=== PATIENT | male | born 1950 | race Caucasian/White ===

== ENCOUNTER 2018-01-22 13:22 | Inpatient (IN) | payer MEDICARE ==
[~2018-01-22] VITALS: Ht 177.8 cm; Wt 74.7 kg
[2018-01-22] VITALS (8 sets, daily range): BP systolic 137–178; BP diastolic 70–86; PULSE 7–86; RESP 16–23; TEMP 98.2–98.4; O2SAT 98–100
[2018-01-22] MEDS ORDERED: LISI-590 PO (13:48)
[2018-01-22] MEDS ORDERED: MILK140C PO (13:48)
[2018-01-22] MEDS ORDERED: LORA-474 PO (13:48)
[2018-01-22] MEDS ORDERED: tumeric (13:48)
[2018-01-22] MEDS ORDERED: TOPR50TA PO (13:48)
[2018-01-22] MEDS ORDERED: PROT40TA PO (13:48)
[2018-01-22] MEDS ORDERED: SODIUM CHLOR 0.9% 1000 ML INJ 1,000 ML IV SCH (14:01)
[2018-01-22] MEDS ORDERED: SODIUM CHLORIDE 0.9% FLUSH 10 ML FLUSH IVF PRN (14:15)
[2018-01-22] MEDS ORDERED: DEXAMETHASONE SOD PHOS 20 MG/5 ML VIAL IV PUSH ONE (14:15)
[2018-01-22 14:21] LABS: AUTOMATED NEUTROPHIL # 4.9 TH/MM3 (1.8-7.7); BASOPHIL % 0.7 % (0.0-2.0); EOSINOPHIL # 0.1 TH/MM3 (0-0.4); EOSINOPHIL % 1.6 % (0.0-4.0); HEMATOCRIT 35.3 % (39.0-51.0); HEMOGLOBIN 11.9 GM/DL (13.0-17.0); LYMPH % 10.5 % (9.0-44.0); LYMPHOCYTE # 0.7 TH/MM3 (1.0-4.8); MEAN CELL VOLUME 97.8 FL (80.0-100.0); MEAN CORPUSCULAR HEMOGLOBIN 32.9 PG (27.0-34.0); MEAN CORPUSCULAR HGB CONC 33.6 % (32.0-36.0); MEAN PLATELET VOLUME 7.4 FL (7.0-11.0); MONO % 8.8 % (0.0-8.0); MONOCYTE # 0.6 TH/MM3 (0-0.9); NEUT % 78.4 % (16.0-70.0); PLATELET COUNT 192 TH/MM3 (150-450); RED BLOOD COUNT 3.61 MIL/MM3 (4.50-5.90); RED CELL DISTRIBUTION WIDTH 13.5 % (11.6-17.2); WHITE BLOOD COUNT 6.3 TH/MM3 (4.0-11.0)
[2018-01-22 14:32] LABS: PROTHROMBIN TIME - PATIENT 9.9 SEC (9.8-11.6)
--- NOTE | 2018-01-22 15:00 | PD ---
HPI Chief Complaint: Syncope/Near-Syncope Time Seen by Provider: 13:48 Travel History International Travel<30 days: No Contact w/Intl Traveler<30days: No Traveled to known affect area: No History of Present Illness HPI 67-year-old male with history of hypertension, SVT, here for evaluation of throat pain, neck swelling, and a syncopal episode. The patient reports that he felt pain in his throat yesterday evening. When he woke up this morning he had a significant amount of swelling to his anterior neck. He went to an urgent care facility, and while waiting in their waiting room he became diaphoretic and had a syncopal episode. During this episode he had slight upper extremity tremors. No seizure history. Upon arrival the patient states he feels well other than having a sore throat. His voice is hoarse. He is able to swallow and tolerate his secretions. He is able to breathe without difficulty. He is on an CARLA inhibitor. No fever. PFSH Past Medical History Diminished Hearing: No Hypertension: Yes Influenza Vaccination: Yes ?: Not Past Surgical History Tonsillectomy: Yes Social History Alcohol Use: Yes Tobacco Use: Yes Allergies-Medications (Allergen,Severity, Reaction): Coded Allergies: No Known Allergies (Unverified , 01/22/18) Reported Meds & Prescriptions Reported Meds & Active Scripts Active Reported [tumeric] 0 Milk Thistle 140 Mg Cap 240 Mg PO DAILY Ativan (Lorazepam) 1 Mg Tab 1.5 Mg PO HS PRN Protonix (Pantoprazole Sodium) 40 Mg Tab 40 Mg PO DAILY Zestril (Lisinopril) 10 Mg Tab 10 Mg PO DAILY Toprol XL (Metoprolol Succinate) 50 Mg Tab 50 Mg PO DAILY Review of Systems Except as stated in HPI: all other systems reviewed are Neg Physical Exam Narrative GENERAL: Well-developed, well-nourished, awake, alert, comfortable, no apparent distress. SKIN: Focused skin assessment warm/dry. HEAD: Atraumatic. Normocephalic. EYES: Pupils equal and round. No scleral icterus. No injection or drainage. ENT: Mucous membranes pink and moist. Pharynx with erythema with enlarged uvula. Tongue with black hue, no swelling. No lip swelling. No drooling or stridor. Hoarse voice. NECK: Trachea midline. No JVD. Anterior neck with large area of swelling which feels soft and not indurated. CARDIOVASCULAR: Regular rate and rhythm. No murmur appreciated. RESPIRATORY: No accessory muscle use. Clear to auscultation. Breath sounds equal bilaterally. GASTROINTESTINAL: Abdomen soft, non-tender, nondistended. MUSCULOSKELETAL: No obvious deformities. No clubbing. No cyanosis. No edema. NEUROLOGICAL: Awake and alert. No obvious cranial nerve deficits. Motor grossly within normal limits. Normal speech. PSYCHIATRIC: Appropriate mood and affect; insight and judgment normal. Data Data Last Documented VS Vital Signs Date Time Temp Pulse Resp B/P (MAP) Pulse Ox O2 Delivery O2 Flow Rate FiO2 01/22/18 17:24 80 18 178/86 (116) 98 Room Air 01/22/18 13:30 98.2 Orders Orders Ckmb (Isoenzyme) Profile (01/22/18 14:01) Complete Blood Count With Diff (01/22/18 14:01) Comprehensive Metabolic Panel (01/22/18 14:01) Magnesium (Mg) (01/22/18 14:01) Prothrombin Time / Inr (Pt) (01/22/18 14:01) Act Partial Throm Time (Ptt) (01/22/18 14:01) Troponin I (01/22/18 14:01) Ecg Monitoring (01/22/18 14:01) Iv Access Insert/Monitor (01/22/18 14:01) Oximetry (01/22/18 14:01) Sodium Chloride 0.9% Flush (Ns Flush) (01/22/18 14:15) Chest, Pa & Lat (01/22/18 14:01) Group A Rapid Strep Screen (01/22/18 14:01) Ct Soft Tiss Neck W Iv Cont (01/22/18 ) Ct Brain W/O Iv Contrast(Rout) (01/22/18 ) Dexamethasone Inj (Decadron Inj) (01/22/18 14:15) Sodium Chlor 0.9% 1000 Ml Inj (Ns 1000 M (01/22/18 14:01) Strep Culture (Group A) (01/22/18 14:05) Electrocardiogram (01/22/18 13:38) Thyroid Stimulating Hormone (01/22/18 15:00) Sodium Chlor 0.9% 1000 Ml Inj (Ns 1000 M (01/22/18 15:45) Ct Pulmonary Angiogram (01/22/18 ) Iohexol 350 Inj (Omnipaque 350 Inj) (01/22/18 17:16) Clindamycin 900 Mg/Ns Premix (Cleocin 90 (01/22/18 18:00) Labs Laboratory Tests Test 01/22/18 13:55 White Blood Count 6.3 TH/MM3 Red Blood Count 3.61 MIL/MM3 Hemoglobin 11.9 GM/DL Hematocrit 35.3 % Mean Corpuscular Volume 97.8 FL Mean Corpuscular Hemoglobin 32.9 PG Mean Corpuscular Hemoglobin Concent 33.6 % Red Cell Distribution Width 13.5 % Platelet Count 192 TH/MM3 Mean Platelet Volume 7.4 FL Neutrophils (%) (Auto) 78.4 % Lymphocytes (%) (Auto) 10.5 % Monocytes (%) (Auto) 8.8 % Eosinophils (%) (Auto) 1.6 % Basophils (%) (Auto) 0.7 % Neutrophils # (Auto) 4.9 TH/MM3 Lymphocytes # (Auto) 0.7 TH/MM3 Monocytes # (Auto) 0.6 TH/MM3 Eosinophils # (Auto) 0.1 TH/MM3 Basophils # (Auto) 0.0 TH/MM3 CBC Comment DIFF FINAL Differential Comment Prothrombin Time 9.9 SEC Prothromb Time International Ratio 1.0 RATIO Activated Partial Thromboplast Time 24.7 SEC Blood Urea Nitrogen 14 MG/DL Creatinine 0.81 MG/DL Random Glucose 84 MG/DL Total Protein 7.3 GM/DL Albumin 4.4 GM/DL Calcium Level 8.9 MG/DL Magnesium Level 1.4 MG/DL Alkaline Phosphatase 71 U/L Aspartate Amino Transf (AST/SGOT) 115 U/L Alanine Aminotransferase (ALT/SGPT) 105 U/L Total Bilirubin 0.5 MG/DL Sodium Level 124 MEQ/L Potassium Level 4.1 MEQ/L Chloride Level 87 MEQ/L Carbon Dioxide Level 22.6 MEQ/L Anion Gap 14 MEQ/L Estimat Glomerular Filtration Rate 95 ML/MIN Total Creatine Kinase 63 U/L Troponin I LESS THAN 0.02 NG/ML Thyroid Stimulating Hormone 3rd Gen 1.990 uIU/ML MDM Medical Decision Making Medical Screen Exam Complete: Yes Emergency Medical Condition: Yes Medical Record Reviewed: Yes Interpretation(s) EKG: Sinus, rate 76, normal axis, normal intervals, no acute ischemic abnormality. Differential Diagnosis Angioedema, Wagner angina, syncope, dysrhythmia, vasovagal episode from carotid sinus stimulation secondary to neck mass. Narrative Course Vital signs reviewed. CBC: WBC 6.3, hemoglobin 11.9, hematocrit 35.3, platelets 192, neutrophils 78%. CMP is remarkable for sodium 124, chloride 87, AST 115, ALT 105, otherwise unremarkable. TSH is 1.99 CT head: CONCLUSION: 1. No acute intracranial abnormalities. CT pulmonary angiogram: CONCLUSION: 1. Negative for pulmonary embolus. No lung consolidation or effusion. Moderate coronary calcifications. CT soft tissue neck: CONCLUSION: Nonspecific diffuse anterior superficial soft tissue edema as well as diffuse circumferential mucosal edema of the hypopharynx and thickening of the epiglottis. Retropharyngeal soft tissue edema also noted at this level. Findings indicate nonspecific inflammatory changes or infection. Airway is open. No defined abscess identified. The patient was given 10 mg of IV Decadron shortly after arriving to the emergency department. He states he feels as though his throat is slightly improved, however he is still hoarse. He was tolerating his secretions. There is no stridor. The patient is on an CARLA inhibitor, and I believe that this is more likely angioedema than infectious. He is afebrile. The patient's syncopal episode could have been secondary to carotid sinus stimulation secondary to the neck edema. Case discussed with on-call ENT Dr. Arciniega. Plan is to start the patient on clindamycin and steroids and admit him to the [facility] ICU to the truck operator service. Case discussed with Dr. Archer who will admit the patient to the truck operator service at the [facility] Diagnosis Primary Impression: Angioedema Qualified Codes: T78.3XXA - Angioneurotic edema, initial encounter Additional Impressions: Epiglottitis Syncope Qualified Codes: R55 - Syncope and collapse Hyponatremia Chay Schmidt MD Jan 22, 2018 15:00
--- NOTE | 2018-01-22 15:09 | RADRPT ---
EXAM DATE/TIME: 01/22/2018 14:34 [facility] COMPARISON: No previous studies available for comparison. INDICATIONS : Syncopal episode today, cough, sore throat MEDICAL HISTORY : Hypertension. SURGICAL HISTORY : None. ENCOUNTER: Initial ACUITY: 1 day PAIN SCORE: 0/10 LOCATION: Bilateral chest FINDINGS: PA and lateral views of the chest. The lungs are clear. Cardiomediastinal silhouette within normal li mits. No evidence of pleural effusion or pneumothorax. CONCLUSION: No acute cardiopulmonary disease identified. Marcelino Martinez MD on January 22, 2018 at 15:07 Board Certified Radiologist. This report was verified electronically.
[2018-01-22 15:14] LABS: ALBUMIN 4.4 GM/DL (3.4-5.0); ALKALINE PHOSPHATASE 71 U/L (45-117); ALT (GPT) 105 U/L (12-78); AST (GOT) 115 U/L (15-37); BICARBONATE 22.6 MEQ/L (21.0-32.0); BLOOD UREA NITROGEN 14 MG/DL (7-18); CALCIUM 8.9 MG/DL (8.5-10.1); CHLORIDE 87 MEQ/L (98-107); CREATININE 0.81 MG/DL (0.60-1.30); GLOMERULAR FILTRATION RATE 95 ML/MIN (>89); GLUCOSE,RANDOM 84 MG/DL (74-106); MAGNESIUM 1.4 MG/DL (1.5-2.5); TOTAL BILIRUBIN ADULT 0.5 MG/DL (0.2-1.0); TOTAL PROTEIN 7.3 GM/DL (6.4-8.2); TROPONIN I LESS THAN 0.02 NG/ML (0.02-0.05)
[2018-01-22 15:38] LABS: SODIUM (NA) 124 MEQ/L (136-145)
[2018-01-22] MEDS ORDERED: SODIUM CHLOR 0.9% 1000 ML INJ 1,000 ML IV ONE (15:45)
--- NOTE | 2018-01-22 16:14 | EKG ---
Date Performed: 01/22/2018 Time Performed: 13:38:41 PTAGE: 67 years EKG: Sinus rhythm NORMAL ECG NO PREVIOUS TRACING DOCTOR: Raymond Eller Interpretating Date/Time 01/22/2018 16:14:07
[2018-01-22] MEDS ORDERED: IOHEXOL 350 MG/ML 10 ML VIAL (for RAD DIAG) IVCONTRAST ONE (17:16)
--- NOTE | 2018-01-22 17:28 | RADRPT ---
EXAM DATE/TIME: 01/22/2018 16:58 [facility] COMPARISON: No previous studies available for comparison. INDICATIONS : Elevated sodium levels, poss seizure. IV CONTRAST: 75 cc Omnipaque 350 (iohexol) IV ; Cumulative dose for multiple exams. RADIATION DOSE: 9.05 CTDIvol (mGy) ; Combined studies MEDICAL HISTORY : Hypertension. SURGICAL HISTORY : None. ENCOUNTER: Initial ACUITY: 2 days PAIN SCALE: 0/10 LOCATION: chest TECHNIQUE: Volumetric scanning of the chest was performed using a pulmonary embolism protocol MIP images were re constructed. Using automated exposure control and adjustment of the mA and/or kV according to patien t size, radiation dose was kept as low as reasonably achievable to obtain optimal diagnostic quality images. DICOM format image data is available electronically for review and comparison. Follow-up recommendations for detected pulmonary nodules are based at a minimum on nodule size and pa tient risk factors according to Fleischner Society Guidelines. FINDINGS: No filling defects identified to suggest pulmonary embolic disease. There is no pleural or pericardial effusion. Moderate coronary artery calcifications are noted. No ac kashia bony abnormalities. No acute findings in the upper abdomen. CONCLUSION: 1. Negative for pulmonary embolus. No lung consolidation or effusion. Moderate coronary calcification lilia Gudino MD on January 22, 2018 at 17:25 Board Certified Radiologist. This report was verified electronically.
--- NOTE | 2018-01-22 17:30 | RADRPT ---
EXAM DATE/TIME: 01/22/2018 16:55 [facility] COMPARISON: No previous studies available for comparison. INDICATIONS : SEIZURE. RADIATION DOSE: 67.45 CTDIvol (mGy) MEDICAL HISTORY : Hypertension. SURGICAL HISTORY : None. ENCOUNTER: Initial ACUITY: 2 days PAIN SCALE: 0/10 LOCATION: cranial TECHNIQUE: Multiple contiguous axial images were obtained of the head. Using automated exposure control and adj ustment of the mA and/or kV according to patient size, radiation dose was kept as low as reasonably a chievable to obtain optimal diagnostic quality images. DICOM format image data is available electro nically for review and comparison. FINDINGS: CEREBRUM: The ventricles are normal for age. No evidence of midline shift, mass lesion, hemorrhage or acute in farction. No extra-axial fluid collections are seen. POSTERIOR FOSSA: The cerebellum and brainstem are intact. The 4th ventricle is midline. The cerebellopontine angle i s unremarkable. EXTRACRANIAL: The visualized portion of the orbits is intact. SKULL: The calvaria is intact. No evidence of skull fracture. CONCLUSION: 1. No acute intracranial abnormalities. Tanmay Gudino MD on January 22, 2018 at 17:27 Board Certified Radiologist. This report was verified electronically.
--- NOTE | 2018-01-22 17:34 | RADRPT ---
EXAM DATE/TIME: 01/22/2018 17:02 [facility] COMPARISON: No previous studies available for comparison. INDICATIONS : Swelling, sore throat. IV CONTRAST: 75 cc Omnipaque 350 (iohexol) IV ; Cumulative dose for multiple exams. RADIATION DOSE: 17.02 CTDIvol (mGy) MEDICAL HISTORY : Hypertension. SURGICAL HISTORY : ENCOUNTER: Initial ACUITY: 2 days PAIN SCALE: 0/10 LOCATION: neck TECHNIQUE: Volumetric scanning of the neck was performed. Using automated exposure control and adjustment of th e mA and/or kV according to patient size, radiation dose was kept as low as reasonably achievable to obtain optimal diagnostic quality images. DICOM format image data is available electronically for r eview and comparison. FINDINGS: NASOPHARYNX: The nasopharyngeal airway has a normal configuration. No mucosal thickening or mass is seen. OROPHARYNX: The intrinsic muscles of the tongue are symmetric. The tonsillar pillars are intact. The prevertebr al soft tissues are not thickened. HYPOPHARYNX: There is evidence of mild diffuse thickening of the epiglottis as well as retropharyngeal soft tissue edema at the level of the hypopharynx. Discrete defined abscess is not seen. Adjacent diffuse subman dibular and anterior neck superficial soft tissue edema is noted at the level of the hypopharynx. The airway is open. LARYNX: The supraglottic, glottic, and infraglottic structures are intact. PARAPHARYNGEAL: The parapharyngeal space is intact. SALIVARY GLANDS: The parotid and submandibular glands are intact. LYMPH NODES: No enlarged or necrotic-appearing nodes. THYROID: Homogeneous enhancement without evidence of nodule. BONES: Unremarkable. CONCLUSION: Nonspecific diffuse anterior superficial soft tissue edema as well as diffuse circumferential mucosal edema of the hypopharynx and thickening of the epiglottis. Retropharyngeal soft tissue edema also no clifford at this level. Findings indicate nonspecific inflammatory changes or infection. Airway is open. N o defined abscess identified. Marcelino Martinez MD on January 22, 2018 at 17:28 Board Certified Radiologist. This report was verified electronically.
[2018-01-22] MEDS ORDERED: CLINDAMYCIN 900 MG/NS PREMIX 50 ML IV ONE (18:00)
[2018-01-22] MEDS ORDERED: MAGNESIUM SULFATE 1 GM PREMIX 100 ML IV ONE (18:15)
[2018-01-22] MEDS ORDERED: CHLORHEXIDINE GLUCONATE 2 % 1 PACK (2 CLOTHS) TOP PRN (20:30)
[2018-01-22] MEDS ORDERED: METOPROLOL TARTRATE 5 MG/5 ML VIAL IV PUSH SCH (20:30)
[2018-01-22] MEDS ORDERED: RESP: ALBUTEROL 2.5 MG/IPRATROPIUM 0.5 MG NEB (PRN) INH (20:30)
[2018-01-22] MEDS ORDERED: LACTULOSE SYRUP 20 GM/30 ML CUP PO PRN (20:30)
[2018-01-22] MEDS ORDERED: LABETALOL HCL 100 MG/20 ML VIAL IV PUSH PRN (20:30)
[2018-01-22] MEDS ORDERED: BISACODYL 10 MG SUPP RECTAL PRN (20:30)
[2018-01-22] MEDS ORDERED: SODIUM CHLORIDE 0.9% FLUSH 10 ML FLUSH IV FLUSH PRN (20:30)
[2018-01-22] MEDS ORDERED: MAGNESIUM HYDROXIDE SUSP 30 ML CUP PO PRN (20:30)
[2018-01-22] MEDS ORDERED: MISCELLANEOUS NURSING INFORMATION XX SCH (20:30)
[2018-01-22] MEDS ORDERED: SENNOSIDES 8.6 MG TAB PO PRN (20:30)
[2018-01-22] MEDS ORDERED: ONDANSETRON HCL 4 MG/2 ML VIAL IV PUSH PRN (20:30)
[2018-01-22] MEDS ORDERED: LORazepam 0.5 MG TAB PO PRN (21:00)
[2018-01-22] MEDS: SODIUM CHLORIDE 0.9% FLUSH 10 ML FLUSH IV FLUSH SCH (21:30)
[2018-01-22] MEDS: SODIUM CHLOR 0.9% 1000 ML INJ 1,000 ML IV SCH (22:10)
[2018-01-22] MEDS: DEXAMETHASONE SOD PHOS 4 MG/ML VIAL IV PUSH SCH (22:11)
[2018-01-22] MEDS: ENOXAPARIN SODIUM 40 MG/0.4 ML SYRINGE SQ SCH (22:11)
--- NOTE | 2018-01-22 22:21 | HHI.CCPN ---
Subjective Remarks/Hospital Course History of Present Illness HPI 67-year-old male with history of hypertension, SVT presented to the ER at [facility] for evaluation of throat pain, neck swelling, and a syncopal episode. The patient reports that he felt pain in his throat yesterday evening. When he woke up this morning he had a significant amount of swelling to his anterior neck. He went to an urgent care facility, and while waiting in their waiting room he became diaphoretic and had a syncopal episode. During this episode he had slight upper extremity tremors. No seizure history. Upon arrival the patient states he feels well other than having a sore throat. His voice is hoarse. He was able to swallow and tolerate his secretions. He is able to breathe without difficulty. He is on an CARLA inhibitor. No fever. Patient underwent imaging studies at [facility] and was found to have swelling in the neck with swelling around the epiglottis. ENT Dr. Arciniega was contacted and advised admission with Decadron and IV clindamycin. Patient was accepted for admission by critical care medicine service. He was transferred to the [facility] hospital and I evaluated him immediately following his arrival to [facility]. At that time patient was resting in bed not complaining of any shortness of breath or difficulty breathing. He denied any stridor at the time. He did have a minimal cough. He felt that his neck swelling was slightly improved. He denied any fever or chills denied any hemoptysis. He did take his Toprol-XL and Ativan earlier at [facility]. He denied any difficulty with swallowing. History PFSH Past Medical History Diminished Hearing: No Hypertension: Yes Influenza Vaccination: Yes ?: Not Past Surgical History Tonsillectomy: Yes Social History Alcohol Use: Yes Tobacco Use: Yes Allergies-Medications Allergies-Medications (Allergen,Severity, Reaction): Coded Allergies: No Known Allergies (Unverified , 01/22/18) Reported Meds & Prescriptions Reported Meds & Active Scripts Active Reported [tumeric] 0 Milk Thistle 140 Mg Cap 240 Mg PO DAILY Ativan (Lorazepam) 1 Mg Tab 1.5 Mg PO HS PRN Protonix (Pantoprazole Sodium) 40 Mg Tab 40 Mg PO DAILY Zestril (Lisinopril) 10 Mg Tab 10 Mg PO DAILY Toprol XL (Metoprolol Succinate) 50 Mg Tab 50 Mg PO DAILY ROS Review of Systems Except as stated in HPI: all other systems reviewed are Neg Objective Vital Signs Date Time Temp Pulse Resp B/P (MAP) Pulse Ox O2 Delivery O2 Flow Rate FiO2 01/22/18 20:52 01/22/18 20:05 86 18 98 Room Air 01/22/18 13:30 98.2 Intake and Output 01/22/18 01/22/18 01/23/18 08:00 16:00 00:00 Intake Total 1150 ml Balance 1150 ml Result Diagram: 01/22/18 1355 01/22/18 1355 Other Results Microbiology Date/Time Source Procedure Growth Status 01/22/18 14:05 Throat Group A Streptococcus Screen ([facility]) - Final Complete Objective Remarks Narrative GENERAL: Well-developed, well-nourished, awake, alert, comfortable, no apparent distress. SKIN: Focused skin assessment warm/dry. HEAD: Atraumatic. Normocephalic. EYES: Pupils equal and round. No scleral icterus. No injection or drainage. ENT: Mucous membranes pink and moist. Pharynx with erythema with enlarged uvula. Tongue with black hue, no swelling. No lip swelling. No drooling or stridor. No hoarseness noted in voice currently. NECK: Trachea midline. No JVD. Anterior neck with large area of swelling which feels soft and not indurated. Minimally tender on palpation. CARDIOVASCULAR: Regular rate and rhythm. No murmur appreciated. RESPIRATORY: No accessory muscle use. Clear to auscultation. Breath sounds equal bilaterally. No stridor noted, no wheezing GASTROINTESTINAL: Abdomen soft, non-tender, nondistended. MUSCULOSKELETAL: No obvious deformities. No clubbing. No cyanosis. No edema. NEUROLOGICAL: Awake and alert. No obvious cranial nerve deficits. Motor grossly within normal limits. Normal speech. PSYCHIATRIC: Appropriate mood and affect; insight and judgment normal. A/P Assessment and Plan 67 year-old male with: Neck swelling due to angioedema Hypertension Hyponatremia History of SVT Plan: Admit to ICU Continue Ativan when necessary for anxiety Follow neuro status Supplemental O2 as needed. Bronchial dilators when necessary. If patient develops stridor or worsening swelling/angioedema, may require endotracheal intubation for airway protection. Toprol-XL will be continued with labetalol when necessary for hypertension. Zestril stopped which probably is responsible for his angioedema. Will add metoprolol 25 mg daily at bedtime in addition to Toprol-XL 50 mg home dose. IV hydration with normal saline, repeat BMP in a.m. IV Decadron, clindamycin ordered. ENT consulted for further evaluation of angioedema and neck swelling. Monitor and replete electrolytes, follow BUN/creatinine Watch for hyperglycemia, SSI for glycemic control if needed. Continue Protonix for GI prophylaxis Lovenox for DVT prophylaxis We will initiate clear liquids in a.m. Ordered Transfer to hospitalist service in a.m. unless angioedema worsens. Adonay Bae MD Jan 22, 2018 22:21
[2018-01-23] VITALS (12 sets, daily range): BP systolic 108–171; BP diastolic 54–86; PULSE 75–108; RESP 22–32; TEMP 97.8–98.8; O2SAT 96–99
[2018-01-23] MEDS: CLINDAMYCIN INJ 600 MG in SODIUM CHLORIDE 0.9% INJ 100 ML IV SCH ×5 (00:06→23:16)
[2018-01-23] MEDS ORDERED: METOPROLOL TARTRATE 5 MG/5 ML VIAL IV PUSH PRN (02:30)
[2018-01-23] MEDS: CHLORHEXIDINE GLUCONATE 2 % 1 PACK (2 CLOTHS) TOP SCH (03:32)
[2018-01-23] MEDS: DEXAMETHASONE SOD PHOS 4 MG/ML VIAL IV PUSH SCH ×3 (05:57→21:50)
--- NOTE | 2018-01-23 07:50 | HHI.PR ---
Subjective Remarks in no acute distress. says that ' the throat feels better today'. no fever. no chest pain or sob. Objective Vitals Vital Signs Date Time Temp Pulse Resp B/P (MAP) Pulse Ox O2 Delivery O2 Flow Rate FiO2 01/23/18 06:00 91 01/23/18 04:00 84 01/23/18 04:00 98.4 84 22 108/54 (72) 96 01/23/18 02:00 83 01/23/18 00:00 98.8 91 26 129/60 (83) 98 01/23/18 00:00 91 01/22/18 22:00 80 01/22/18 21:30 98.4 81 23 177/80 (112) 100 01/22/18 21:30 82 01/22/18 20:52 01/22/18 20:05 86 18 153/85 (107) 98 Room Air 01/22/18 18:47 76 18 168/81 (110) 98 Room Air 01/22/18 17:24 80 18 178/86 (116) 98 Room Air 01/22/18 15:01 82 18 137/74 (95) 99 Room Air 01/22/18 15:00 Room Air 01/22/18 14:13 78 18 155/70 (98) 99 Room Air 01/22/18 13:44 97 01/22/18 13:30 98.2 82 16 169/81 (110) 98 I/O 01/22/18 01/22/18 01/22/18 01/23/18 01/23/18 01/23/18 07:00 15:00 23:00 07:00 15:00 23:00 Intake Total 1150 ml 104 ml Output Total 425 ml Balance 1150 ml -321 ml Intake Oral 0 ml IV Total 1150 ml 104 ml Output Urine Total 425 ml # Voids 1 # Bowel Movements 0 Result Diagram: 01/22/18 1355 01/22/18 1355 Imaging Last Impressions Chest X-Ray 01/22/18 1401 Signed Impressions: Service Date/Time: Monday, January 22, 2018 14:34 - CONCLUSION: No acute cardiopulmonary disease identified. Marcelino Martinez MD Neck CT 01/22/18 0000 Signed Impressions: Service Date/Time: Monday, January 22, 2018 17:02 - CONCLUSION: Nonspecific diffuse anterior superficial soft tissue edema as well as diffuse circumferential mucosal edema of the hypopharynx and thickening of the epiglottis. Retropharyngeal soft tissue edema also noted at this level. Findings indicate nonspecific inflammatory changes or infection. Airway is open. No defined abscess identified. Marcelino Martinez MD Head CT 01/22/18 0000 Signed Impressions: Service Date/Time: Monday, January 22, 2018 16:55 - CONCLUSION: 1. No acute intracranial abnormalities. Tanmay Gudino MD CT Angiography 01/22/18 0000 Signed Impressions: Service Date/Time: Monday, January 22, 2018 16:58 - CONCLUSION: 1. Negative for pulmonary embolus. No lung consolidation or effusion. Moderate coronary calcifications. Tanmay Gudino MD Objective Remarks GENERAL: This is a well-nourished, well-developed patient, in no apparent distress. CARDIOVASCULAR: Regular rate and regular rhythm without murmurs, gallops, or rubs. RESPIRATORY: Clear to auscultation. Breath sounds equal bilaterally. No wheezes , rales, or rhonchi. GASTROINTESTINAL: Abdomen soft, non-tender, nondistended. Normal, active bowel sounds MUSCULOSKELETAL: Extremities without clubbing, cyanosis, or edema. NEURO: Alert & Oriented x4 to person, place, time, situation. Moves all ext x4 Medications and IVs Inpatient Medications Albuterol/ Ipratropium (Duoneb Neb) 1 ampule Q2HR NEB PRN INH WHEEZING; Start 01/22/18 at 20:30 Bisacodyl (Dulcolax Supp) 10 mg DAILY PRN RECTAL SEVERE CONSITIPATION; Start at 20:30 Chlorhexidine Gluconate (Chlorhexidine 2% Cloth) 3 pack UNSCH PRN TOP HYGIENIC CARE; Start 01/22/18 at 20:30 Clindamycin Phosphate 600 mg/ Sodium Chloride 104 ml @ 208 mls/hr Q6H IV Last administered on 01/23/18at 05:57; Start 01/23/18 at 00:00 Clindamycin/ Sodium Chloride 50 ml @ 100 mls/hr ONCE ONCE IV Last administered on 01/22/18at 18:03; Start 01/22/18 at 18:00; Stop 01/22/18 at 18:29 ; Status DC Dexamethasone Sodium Phosphate (Decadron Inj) 4 mg Q8HR IV PUSH Last administered on 01/23/18at 05:57; Start 01/22/18 at 22:00 Enoxaparin Sodium (Lovenox Inj) 40 mg Q24H SQ Last administered on 01/22/18at 22 :11; Start 01/22/18 at 21:00 Labetalol HCl (Trandate Inj) 20 mg Q4H PRN IV PUSH sbp GREATER THAN 160mm Hg Last administered on 01/22/18at 21:57; Start 01/22/18 at 20:30 Lactulose (Lactulose Liq) 30 ml DAILY PRN PO SEVERE CONSITIPATION; Start at 20:30 Lorazepam (Ativan) 1.5 mg HS PRN PO ANXIETY AND/OR AGITATION; Start 01/22/18 at 21:00 Magnesium Hydroxide (Milk Of Magnesia Liq) 30 ml Q12H PRN PO Mild constipation ; Start 01/22/18 at 20:30 Magnesium Sulfate/ Dextrose 100 ml @ 100 mls/hr ONCE ONCE IV Last administered on 01/22/18at 19:33; Start 01/22/18 at 18:15; Stop 01/22/18 at 19:14 ; Status DC Metoprolol Tartrate (Lopressor Inj) 2.5 mg Q6H PRN IV PUSH heart rate greater than 110; Start 01/23/18 at 02:30 Miscellaneous Information 1 [id number] Last administered on 01/22/18at 21:30; Start 01/22/18 at 20:30 Ondansetron HCl (Zofran Inj) 4 mg Q6H PRN IV PUSH NAUSEA OR VOMITING; Start 09/01 at 20:30 Pantoprazole Sodium (Protonix) 40 mg DAILY PO ; Start 01/23/18 at 09:00 Sennosides (Senokot) 17.2 mg Q12H PRN PO Moderate constipation; Start 01/22/18 at 20:30 Sodium Chloride (NS Flush) 2 ml BID IV FLUSH Last administered on 01/22/18at 21: 30; Start 01/22/18 at 21:00 A/P Assessment and Plan A/P Neck swelling- possibly due to angioedema - continue IV Decadron and Clindamycin- awaiting ENT evaluation. Hypertension - resume metoprolol- will monitor and adjust the regimen as needed. Hyponatremia - continue IV fluid- sodium level today pending.- will monitor elevated LFT's due to hepatitis C/ alcohol abuse - will monitor History of SVT - resume metoprolol transfer to telemetry if ok with ENT. Juliana West MD Jan 23, 2018 07:50
[2018-01-23] MEDS ORDERED: METOPROLOL SUCCINATE 50 MG EXTENDED RELEASE TAB PO SCH (09:00)
[2018-01-23] MEDS: SODIUM CHLORIDE 0.9% FLUSH 10 ML FLUSH IV FLUSH SCH ×2 (09:00→20:46)
[2018-01-23] MEDS: PANTOPRAZOLE SOD 40 MG DELAYED RELEASE TAB PO SCH (09:14)
[2018-01-23 11:26] LABS: AUTOMATED NEUTROPHIL # 3.3 TH/MM3 (1.8-7.7); BASOPHIL % 0.1 % (0.0-2.0); HEMATOCRIT 30.4 % (39.0-51.0); HEMOGLOBIN 10.7 GM/DL (13.0-17.0); LYMPH % 6.5 % (9.0-44.0); LYMPHOCYTE # 0.2 TH/MM3 (1.0-4.8); MEAN CELL VOLUME 98.2 FL (80.0-100.0); MEAN CORPUSCULAR HEMOGLOBIN 34.6 PG (27.0-34.0); MEAN CORPUSCULAR HGB CONC 35.2 % (32.0-36.0); MEAN PLATELET VOLUME 7.1 FL (7.0-11.0); MONOCYTE # 0.2 TH/MM3 (0-0.9); NEUT % 88.4 % (16.0-70.0); PLATELET COUNT 160 TH/MM3 (150-450); RED CELL DISTRIBUTION WIDTH 13.7 % (11.6-17.2); WHITE BLOOD COUNT 3.7 TH/MM3 (4.0-11.0)
[2018-01-23 11:50] LABS: ALBUMIN 3.9 GM/DL (3.4-5.0); AST (GOT) 59 U/L (15-37); BICARBONATE 23.5 MEQ/L (21.0-32.0); BLOOD UREA NITROGEN 14 MG/DL (7-18); CALCIUM 9.1 MG/DL (8.5-10.1); CHLORIDE 93 MEQ/L (98-107); GLOMERULAR FILTRATION RATE 84 ML/MIN (>89); GLUCOSE,RANDOM 204 MG/DL (74-106); SODIUM (NA) 128 MEQ/L (136-145)
[2018-01-23 11:51] LABS: ALT (GPT) 78 U/L (12-78)
[2018-01-23 11:53] LABS: ALKALINE PHOSPHATASE 60 U/L (45-117); TOTAL BILIRUBIN ADULT 0.5 MG/DL (0.2-1.0); TOTAL PROTEIN 6.3 GM/DL (6.4-8.2)
[2018-01-23] MEDS: SODIUM CHLOR 0.9% 1000 ML INJ 1,000 ML IV SCH (12:25)
[2018-01-23] MEDS ORDERED: ACETAMINOPHEN 325 MG TAB PO ONE (19:30)
[2018-01-23] MEDS: ENOXAPARIN SODIUM 40 MG/0.4 ML SYRINGE SQ SCH (20:45)
[2018-01-24] VITALS (8 sets, daily range): BP systolic 118–141; BP diastolic 57–69; PULSE 1–81; RESP 16–45; TEMP 97.9–98.5; O2SAT 97–100
[2018-01-24] MEDS: SODIUM CHLOR 0.9% 1000 ML INJ 1,000 ML IV SCH (01:53)
[2018-01-24] MEDS: CHLORHEXIDINE GLUCONATE 2 % 1 PACK (2 CLOTHS) TOP SCH (04:00)
[2018-01-24] MEDS: CLINDAMYCIN INJ 600 MG in SODIUM CHLORIDE 0.9% INJ 100 ML IV SCH ×2 (05:26→12:15)
[2018-01-24] MEDS: DEXAMETHASONE SOD PHOS 4 MG/ML VIAL IV PUSH SCH ×2 (05:27→13:47)
[2018-01-24 05:45] LABS: BICARBONATE 23.1 MEQ/L (21.0-32.0); CALCIUM 8.8 MG/DL (8.5-10.1); CREATININE 0.74 MG/DL (0.60-1.30)
--- NOTE | 2018-01-24 07:45 | HHI.PR ---
Subjective Remarks looks and feels much better today. no fever. no new complaints. d/w the RN. Objective Vitals Vital Signs Date Time Temp Pulse Resp B/P (MAP) Pulse Ox O2 Delivery O2 Flow Rate FiO2 01/24/18 06:00 69 01/24/18 04:00 75 01/24/18 04:00 98.1 75 20 118/57 (77) 97 01/24/18 02:00 69 01/24/18 00:00 81 01/24/18 00:00 98.5 81 16 127/66 (86) 97 01/23/18 22:00 75 01/23/18 20:00 80 01/23/18 20:00 98.5 80 24 155/70 (98) 99 01/23/18 18:00 85 01/23/18 16:00 84 01/23/18 16:00 98.2 84 25 158/76 (103) 99 01/23/18 14:00 83 01/23/18 12:00 97.8 104 32 164/86 (112) 98 01/23/18 12:00 104 01/23/18 10:00 86 01/23/18 08:00 98.2 108 31 171/83 (112) 97 01/23/18 08:00 108 01/23/18 08:00 98.2 108 31 171/83 (112) 97 I/O 01/23/18 01/23/18 01/23/18 01/24/18 01/24/18 01/24/18 07:00 15:00 23:00 07:00 15:00 23:00 Intake Total 104 ml 300 ml Output Total 425 ml 1900 ml 500 ml Balance -321 ml -1600 ml -500 ml Intake Oral 0 ml 300 ml IV Total 104 ml Output Urine Total 425 ml 1900 ml 500 ml # Voids 3 # Bowel Movements 0 1 0 Result Diagram: 01/23/18 1102 01/24/18 0416 Imaging Last Impressions Chest X-Ray 01/22/18 1401 Signed Impressions: Service Date/Time: Monday, January 22, 2018 14:34 - CONCLUSION: No acute cardiopulmonary disease identified. Marcelino Martinez MD Neck CT 01/22/18 0000 Signed Impressions: Service Date/Time: Monday, January 22, 2018 17:02 - CONCLUSION: Nonspecific diffuse anterior superficial soft tissue edema as well as diffuse circumferential mucosal edema of the hypopharynx and thickening of the epiglottis. Retropharyngeal soft tissue edema also noted at this level. Findings indicate nonspecific inflammatory changes or infection. Airway is open. No defined abscess identified. Marcelino Martinez MD Head CT 01/22/18 0000 Signed Impressions: Service Date/Time: Monday, January 22, 2018 16:55 - CONCLUSION: 1. No acute intracranial abnormalities. Tanmay Gudino MD CT Angiography 01/22/18 0000 Signed Impressions: Service Date/Time: Monday, January 22, 2018 16:58 - CONCLUSION: 1. Negative for pulmonary embolus. No lung consolidation or effusion. Moderate coronary calcifications. Tanmay Gudino MD Objective Remarks GENERAL: This is a well-nourished, well-developed patient, in no apparent distress. CARDIOVASCULAR: Regular rate and regular rhythm without murmurs, gallops, or rubs. RESPIRATORY: Clear to auscultation. Breath sounds equal bilaterally. No wheezes , rales, or rhonchi. GASTROINTESTINAL: Abdomen soft, non-tender, nondistended. Normal, active bowel sounds MUSCULOSKELETAL: Extremities without clubbing, cyanosis, or edema. NEURO: Alert & Oriented x4 to person, place, time, situation. Moves all ext x4 Procedures none Medications and IVs Inpatient Medications Acetaminophen (Tylenol) 650 mg ONCE ONCE PO Last administered on 01/23/18at 20: 45; Start 01/23/18 at 19:30; Stop 01/23/18 at 19:31; Status DC Albuterol/ Ipratropium (Duoneb Neb) 1 ampule Q2HR NEB PRN INH WHEEZING; Start 01/22/18 at 20:30 Bisacodyl (Dulcolax Supp) 10 mg DAILY PRN RECTAL SEVERE CONSITIPATION; Start at 20:30 Chlorhexidine Gluconate (Chlorhexidine 2% Cloth) 3 pack UNSCH PRN TOP HYGIENIC CARE; Start 01/22/18 at 20:30 Clindamycin Phosphate 600 mg/ Sodium Chloride 104 ml @ 208 mls/hr Q6H IV Last administered on 01/24/18at 05:26; Start 01/23/18 at 00:00 Clindamycin/ Sodium Chloride 50 ml @ 100 mls/hr ONCE ONCE IV Last administered on 01/22/18 18:03; Start 01/22/18 at 18:00; Stop 01/22/18 at 18:29 ; Status DC Dexamethasone Sodium Phosphate (Decadron Inj) 8 mg Q8HR IV PUSH Last administered on 01/24/18at 05:27; Start 01/23/18 at 14:00 Enoxaparin Sodium (Lovenox Inj) 40 mg Q24H SQ Last administered on 01/23/18at 20 :45; Start 01/22/18 at 21:00 Labetalol HCl (Trandate Inj) 20 mg Q4H PRN IV PUSH sbp GREATER THAN 160mm Hg Last administered on 01/22/18 21:57; Start 01/22/18 at 20:30 Lactulose (Lactulose Liq) 30 ml DAILY PRN PO SEVERE CONSITIPATION; Start at 20:30 Lorazepam (Ativan) 1.5 mg HS PRN PO ANXIETY AND/OR AGITATION Last administered on 01/23/18at 20:45; Start 01/22/18 at 21:00 Magnesium Hydroxide (Milk Of Magnesia Liq) 30 ml Q12H PRN PO Mild constipation ; Start 01/22/18 at 20:30 Magnesium Sulfate/ Dextrose 100 ml @ 100 mls/hr ONCE ONCE IV Last administered on 01/22/18at 19:33; Start 01/22/18 at 18:15; Stop 01/22/18 at 19:14 ; Status DC Metoprolol Succinate (Toprol Xl) 50 mg DAILY PO Last administered on 01/23/18at 14:39; Start 01/23/18 at 09:00 Metoprolol Tartrate (Lopressor Inj) 2.5 mg Q6H PRN IV PUSH heart rate greater than 110; Start 01/23/18 at 02:30 Miscellaneous Information 1 [id number] Last administered on 01/22/18at 21:30; Start 01/22/18 at 20:30 Ondansetron HCl (Zofran Inj) 4 mg Q6H PRN IV PUSH NAUSEA OR VOMITING; Start 09/01 at 20:30 Pantoprazole Sodium (Protonix) 40 mg DAILY PO Last administered on 01/23/18at 09 :14; Start 01/23/18 at 09:00 Sennosides (Senokot) 17.2 mg Q12H PRN PO Moderate constipation Last administered on 01/23/18at 09:14; Start 01/22/18 at 20:30 Sodium Chloride (NS Flush) 2 ml BID IV FLUSH Last administered on 01/23/18at 20: 46; Start 01/22/18 at 21:00 A/P Assessment and Plan A/P Neck swelling- possibly due to angioedema- resolved. - switch to po steroid and Clindamycin- evaluated by ENT. Hypertension - resumed metoprolol- will monitor and adjust the regimen as needed. Hyponatremia-much improved. elevated LFT's due to hepatitis C/ alcohol abuse- improved. History of SVT; - resumed metoprolol Discharge Planning dc home today if ok with ENT. see med list. f/u; pcp and ENT. d/w the patient and RN. Juliana West MD Jan 24, 2018 07:44
[2018-01-24] MEDS ORDERED: CLIN300C5 PO (07:46)
[2018-01-24] MEDS ORDERED: MEDR4PAK PO (07:46)
--- NOTE | 2018-01-24 07:48 | HHI.DS ---
Discharge Summary Admission Date Jan 22, 2018 at 18:03 Discharge Date: Jan 24, 2018 Admitting Diagnosis Angioedema, epiglottitis, syncope, hyponatremia (1) Angioedema ICD Code: T78.3XXA - Angioneurotic edema, initial encounter Diagnosis: Principal Status: Acute Procedures none Brief History - From Admission 67-year-old male with history of hypertension, SVT presented to the ER at [place] for evaluation of throat pain, neck swelling. The patient reports that he felt pain in his throat yesterday evening. When he woke up in the morning he had a significant amount of swelling to his anterior neck. CBC/BMP: 01/23/18 1102 01/24/18 0416 Significant Findings Laboratory Tests Test 01/22/18 13:55 01/22/18 20:20 01/23/18 11:02 01/24/18 04:16 Red Blood Count 3.61 MIL/MM3 (4.50-5.90) 3.10 MIL/MM3 (4.50-5.90) Hemoglobin 11.9 GM/DL (13.0-17.0) 10.7 GM/DL (13.0-17.0) Hematocrit 35.3 % (39.0-51.0) 30.4 % (39.0-51.0) Neutrophils (%) (Auto) 78.4 % (16.0-70.0) 88.4 % (16.0-70.0) Monocytes (%) (Auto) 8.8 % (0.0-8.0) Lymphocytes # (Auto) 0.7 TH/MM3 (1.0-4.8) 0.2 TH/MM3 (1.0-4.8) Magnesium Level 1.4 MG/DL (1.5-2.5) Aspartate Amino Transf (AST/SGOT) 115 U/L (15-37) 59 U/L (15-37) Alanine Aminotransferase (ALT/SGPT) 105 U/L (12-78) Sodium Level 124 MEQ/L (136-145) 128 MEQ/L (136-145) 131 MEQ/L (136-145) Chloride Level 87 MEQ/L (98-107) 93 MEQ/L (98-107) 97 MEQ/L (98-107) Troponin I LESS THAN 0.02 NG/ML White Blood Count 3.7 TH/MM3 (4.0-11.0) Mean Corpuscular Hemoglobin 34.6 PG (27.0-34.0) Lymphocytes (%) (Auto) 6.5 % (9.0-44.0) Random Glucose 204 MG/DL (74-106) 131 MG/DL (74-106) Total Protein 6.3 GM/DL (6.4-8.2) Estimat Glomerular Filtration Rate 84 ML/MIN (>89) PE at Discharge GENERAL: This is a well-nourished, well-developed patient, in no apparent distress. CARDIOVASCULAR: Regular rate and regular rhythm without murmurs, gallops, or rubs. RESPIRATORY: Clear to auscultation. Breath sounds equal bilaterally. No wheezes , rales, or rhonchi. GASTROINTESTINAL: Abdomen soft, non-tender, nondistended. Normal, active bowel sounds MUSCULOSKELETAL: Extremities without clubbing, cyanosis, or edema. NEURO: Alert & Oriented x4 to person, place, time, situation. Moves all ext x4 Hospital Course Neck swelling- possibly due to angioedema- resolved. - switch to po steroid and Clindamycin- evaluated by ENT. Hypertension - resumed metoprolol- will monitor and adjust the regimen as needed. Hyponatremia-much improved. elevated LFT's due to hepatitis C/ alcohol abuse- improved. History of SVT; - resumed metoprolol Pt Condition on Discharge: Good Discharge Disposition: Discharge Home Discharge Time: <= 30 minutes Discharge Instructions DIET: Follow Instructions for: Heart Healthy Diet Activities you can perform: Regular-No Restrictions Juliana West MD Jan 24, 2018 07:48
[2018-01-24] MEDS: PANTOPRAZOLE SOD 40 MG DELAYED RELEASE TAB PO SCH (08:31)
--- NOTE | 2018-01-24 12:13 | MB ---
cc: Orestes Arciniega MD DATE OF CONSULT: 01/23/2018 CHIEF COMPLAINT: Neck swelling. HISTORY OF PRESENT ILLNESS: The patient is a pleasant 67-year-old male with recent onset of neck swelling, possibly due to angioedema. He has a history of hypertension and SVT , who presented to the ER at [place] for evaluation of throat pain, neck swelling and syncope. When he woke up 2 days ago, he had significant swelling to his anterior neck. He went to urgent care and became diaphoretic and had a syncopal episode. His voice was hoarse as well. He was on CARLA inhibitor. He underwent imaging studies at [place] [facility], noted to have swelling in the larynx. He was admitted and received Decradon and clindamycin. He states that from yesterday, he is roughly 50% better than he was. He has had no shortness of breath or difficulty breathing. Today, he denied any stridor as well. He feels as if his voice is much less hoarse this evening than it was earlier. His other history is as noted in his prior H and P. PHYSICAL EXAMINATION: GENERAL: The patient is a well adult. PULMONARY: He is speaking without any shortness of breath and able to tolerate his secretions without any problem whatsoever. NECK, HEENT: Has obvious external swelling, although the patient states it is 50% less swelling than it was 36 hours ago. His floor of mouth is soft. His tongue has a black film to it. His neck currently has no tenderness to palpation. On flexible fiber optic laryngoscopy, the epiglottis did appear relatively crisp. The airway was noted to be patent bilaterally. ASSESSMENT AND PLAN: Neck swelling, likely due to angioedema. Airway appears stable currently. I recommend continuing the antibiotics and steroids. Because of the extensive amount of neck swelling that was present initially and although his neck swelling has improved 50%, it still is quite marked currently. I recommend at least another 24 hours, possible 48 hours of continued steroids and antibiotics. The patient's airway is currently stable, but he still has marked external swelling of his neck. I anticipate full recovery of his symptoms in the near future. Once the patient is finally discharged home, when decided by the home team, I recommend him being sent home with oral steroids and antibiotics as well. MD BRIANA Reza , 09:56 PM , 12:20 AM
== END 2018-01-24 14:30 | disposition home or self-care (01) | DRG 916 ==
LOC: PHED 13:22 → PHEDA 18:03 → HIMN 21:20
PROVIDERS: ADMIT Internal Medicine; ATTEND Internal Medicine
DX: T78.3XXA Angioneurotic edema, initial encounter (principal); E87.1 Hypo-osmolality and hyponatremia; J05.10 Acute epiglottitis without obstruction; I47.1 Supraventricular tachycardia; I10 Essential (primary) hypertension; R55 Syncope and collapse; J02.9 Acute pharyngitis, unspecified; R61 Generalized hyperhidrosis; R22.1 Localized swelling, mass and lump, neck; F41.9 Anxiety disorder, unspecified; B19.20 Unspecified viral hepatitis C without hepatic coma; F10.10 Alcohol abuse, uncomplicated; Z72.0 Tobacco use
CPT/HCPCS: 70450; 70491; 71046; 71275; 80048; 80053; 82550; 83735; 84443; 84484; 85025; 85610; 85730; 87081; 87641; 87880; 93005; 96361; 96374; J1100; J1650; J3475; J7030; Q9967